=== PATIENT | female | born 1990 | race African-American/Black ===

== ENCOUNTER 2017-12-05 11:54 | Emergency (ER) | payer OTHER ==
[~2017-12-05] VITALS: Ht 157.5 cm; Wt 45.4 kg
[2017-12-05] MEDS ORDERED: NKM (12:05)
--- NOTE | 2017-12-05 12:08 | Emergency Room Report ---
History of Present Illness General Chief Complaint: Upper Respiratory Illness Source: Patient Present Illness HPI 27 YO Female presents to the ED c/o cough congestion body aches x 1 week. no fevers or chills. cough worse at night with some mucus component to it. Denies sore throat, ear pain, high fevers, lethargy, neck pain/stiffness, irritability, photophobia dehydration, N/V/D. Denies Cp, Palpitations, LOC, AMS , seizures, paresthesias, or changes in Hearing or vision, no Sudden severe MONTEIRO. Denies hx of smoking, asthma or COPD. Allergies: Coded Allergies: No Known Allergies (Unverified , 12/05/17) Patient History Past Medical History: see triage record Past Surgical History: none Pertinent Family History: none Last Menstrual Period: 11/29/2017 Reviewed Nursing Documentation: PMH: Agreed; PSxH: Agreed Nursing Documentation-PMH Past Medical History: No Stated History Review of Systems All Other Systems: negative except mentioned in HPI Physical Exam Vital Signs Date Time Temp Pulse Resp B/P (MAP) Pulse Ox O2 Delivery O2 Flow Rate FiO2 12/05/17 12:00 97.8 77 16 114/75 95 Room Air 97.9 Sp02 EP Interpretation: reviewed, normal General Appearance: no apparent distress, alert, GCS 15, non-toxic Head: normocephalic, atraumatic Eyes: bilateral eye normal inspection, bilateral eye PERRL ENT: hearing grossly normal, normal voice Neck: full range of motion Respiratory: chest non-tender, lungs clear, normal breath sounds, no rhonchi, no respiratory distress, speaking full sentences, wheezing - scant on expirations Cardiovascular #1: regular rate, rhythm Musculoskeletal: back normal, gait/station normal, normal range of motion, non- tender Neurologic: alert, oriented x3, responsive, motor strength/tone normal, sensory intact, normal gait, speech normal, grossly normal Psychiatric: judgement/insight normal Skin: normal color, no rash, warm/dry, well hydrated Lymphatic: no adenopathy Medical Decision Making PA Attestation Dr. Parker is my supervising Physician whom patient management has been discussed with. Diagnostic Impression: Primary Impression: Acute bronchitis Qualified Codes: J20.9 - Acute bronchitis, unspecified ER Course 27 YO Female presents to the ED c/o cough congestion body aches x 1 week. no fevers or chills. cough worse at night with some mucus component to it. Denies sore throat, ear pain, high fevers, lethargy, neck pain/stiffness, irritability, photophobia dehydration, N/V/D. Denies Cp, Palpitations, LOC, AMS , seizures, paresthesias, or changes in Hearing or vision, no Sudden severe MONTE[place]O. Denies hx of smoking, asthma or COPD. Ddx considered but are not limited to URI, pneumonia, PE, strep pharyngitis, meningitis. Vital signs: Pt. is afebrile, the remaining VS are WNL H&PE are most consistent with URI-acute bronchitis no meningeal signs, oropharynx is not involved, no evidence of bacterial infection at this time. ORDERS: none required at this time, the diagnosis is clinical ED INTERVENTIONS: None required at this time. --PT. EDUCATION: Discussed antibiotic resistance with inappropriate prescribing of antibiotics for viral illnesses. Discussed signs and symptoms to indicate viral illness versus bacterial illness. DISCHARGE: At this time pt. is stable for d/c to home. Will provide printed patient care instructions, and any necessary prescriptions. Care plan and follow up instructions have been discussed with the patient prior to discharge. Last Vital Signs Date Time Temp Pulse Resp B/P (MAP) Pulse Ox O2 Delivery O2 Flow Rate FiO2 12/05/17 12:00 97.8 77 16 114/75 95 Room Air 97.9 Disposition: HOME, SELF-CARE Condition: Stable Scripts Benzonatate* (TESSALON PERLE*) 100 Mg Capsule 100 MG ORAL THREE TIMES A DAY, #15 PERLE Prov: Ina Loza P.A. 12/05/17 Guaifenesin (Guaifenesin) 1,200 Mg Tab.er.12h 1200 MG PO DAILY, #20 TAB Prov: Ina Loza P.A. 12/05/17 Albuterol Sulfate* (ALBUTEROL SULFATE MDI*) 8.5 Gm Hfa.aer.ad 2 PUFF INH Q6H, #1 INH 0 Refills Prov: Ina Loza.A. 12/05/17 Codeine/Promethazine Hcl* (PROMETHAZINE-CODEINE SYRUP*) 118 Ml Syrup 5 ML ORAL Q6H PRN for For Cough, #120 ML 0 Refills Prov: Ina Loza 12/05/17 Patient Instructions: Acute Bronchitis, [id number] Additional Instructions: Take medications as directed. Follow up with a Primary Care Provider in 3-5 days, even if your symptoms have resolved. --Please review list of primary care clinics, if you do not already have a primary care provider Return sooner to ED if new symptoms occur, or current symptoms become worse. Do not drink alcohol, drive, or operate heavy machinery while taking cough syrup as this may cause drowsiness. - Please note that this Emergency Department Report was dictated using [employer] doctor md technology software, occasionally this can lead to erroneous entry secondary to interpretation by the dictation equipment. Ina Loza December 05, 2017 12:08
[2017-12-05 12:10] VITALS: BP 114/75
[2017-12-05] MEDS ORDERED: TESSALON PERLE100 MG ORAL (12:17)
[2017-12-05] MEDS ORDERED: ALBUTEROL SULF8.5 GM INH (12:17)
[2017-12-05] MEDS ORDERED: GUAIFENESIN1200 MG PO (12:17)
[2017-12-05] MEDS ORDERED: PROMETHAZINE-C118 M1 ORAL (12:17)
[2017-12-05 12:38] VITALS: BP 114/75
== END 2017-12-05 13:00 | disposition home or self-care (01) ==
LOC: EMR 12:37
DX: J20.9 Acute bronchitis, unspecified (principal)
CPT/HCPCS: 99284

== ENCOUNTER 2019-05-31 10:25 | Emergency (ER) | payer OTHER ==
[~2019-05-31] VITALS: Ht 160 cm; Wt 49.0 kg
[~2019-05-31 10:25] MED LIST: ALBUTEROL SULF8.5 GM INH; GUAIFENESIN1200 MG PO; NKM; PROMETHAZINE-C118 M1 ORAL; TESSALON PERLE100 MG ORAL
--- NOTE | 2019-05-31 10:48 | Emergency Room Report ---
History of Present Illness General Chief Complaint: Complications Source: Patient Present Illness HPI The patient has had spotting for 3 days. Her last normal period was April 23. She was seen by [facility]. An ultrasound was performed. She was sent here for possible treatment of an ectopic . She denies any abdominal pain at this time. There is no fever or chills. She denies any vomiting or nausea. G2, P0 Allergies: Coded Allergies: No Known Allergies (Unverified , 12/05/17) Patient History Social History: Reports: alcohol use - Rare; Denies: smoking - Former Social History Narrative Student studying [employer] Last Menstrual Period: 04/23/19 Now: Yes : 2 Para: 0 Reviewed Nursing Documentation: PMH: Agreed; PSxH: Agreed Nursing Documentation-PMH Past Medical History: No Stated History Review of Systems All Other Systems: negative except mentioned in HPI Physical Exam Vital Signs Date Time Temp Pulse Resp B/P (MAP) Pulse Ox O2 Delivery O2 Flow Rate FiO2 05/31/19 10:30 98.4 94 18 113/75 (88) 97 Room Air Sp02 EP Interpretation: reviewed, normal General Appearance: well appearing, no apparent distress, GCS 15 Head: normocephalic Eyes: bilateral eye normal inspection, bilateral eye PERRL, bilateral eye EOMI ENT: moist mucus membranes Neck: supple Respiratory: lungs clear, normal breath sounds Cardiovascular #1: regular rate, rhythm Cardiovascular #2: 2+ radial (R) Gastrointestinal: normal inspection, normal bowel sounds, non tender, no mass, non-distended Genitourinary: no CVA tenderness, deferred - For ultrasound Musculoskeletal: back normal, gait/station normal, normal range of motion Neurologic: alert, oriented x3, grossly normal Psychiatric: mood/affect normal Skin: no rash Medical Decision Making Diagnostic Impression: Primary Impression: Early stage of Additional Impression: Threatened miscarriage ER Course Patient presents with questionable ectopic and 3 days of vaginal spotting with early . Differential includes early , ectopic, threatened miscarriage, UTI amongst others. Lab evaluation and ultrasound indicated. Patient declines pain medication at this time. Normal white count. Quantitative hCG 469. Ultrasound no intrauterine identified however no adnexal mass or fluid collection. Discussed with Dr. Grady. He recommended that repeat ultrasound and/or quantitative hCG be performed in 3 or 4 days. He also stated no acute treatment needed. Blood O + Discussed treatment plan with patient. Patient stable for outpatient observation and treatment. Laboratory Tests Test 05/31/19 10:40 05/31/19 10:50 Urine Color Pale yellow Urine Appearance Clear Urine pH 8 (4.5-8.0) Urine Specific [place] 1.010 (1.005-1.035) Urine Protein Negative (NEGATIVE) Urine Glucose (UA) Negative (NEGATIVE) Urine Ketones 1+ (NEGATIVE) H Urine Blood Negative (NEGATIVE) Urine Nitrite Negative (NEGATIVE) Urine Bilirubin Negative (NEGATIVE) Urine Urobilinogen 1 MG/DL (0.0-1.0) H Urine Leukocyte Esterase Negative (NEGATIVE) White Blood Count 5.3 K/UL (4.8-10.8) Red Blood Count 3.56 M/UL (4.20-5.40) L Hemoglobin 11.6 G/DL (12.0-16.0) L Hematocrit 34.5 % (37.0-47.0) L Mean Corpuscular Volume 97 FL (80-99) Mean Corpuscular Hemoglobin 32.5 PG (27.0-31.0) H Mean Corpuscular Hemoglobin Concent 33.5 G/DL (32.0-36.0) Red Cell Distribution Width 11.2 % (11.6-14.8) L Platelet Count 205 K/UL (150-450) Mean Platelet Volume 8.0 FL (6.5-10.1) Neutrophils (%) (Auto) 60.4 % (45.0-75.0) Lymphocytes (%) (Auto) 28.4 % (20.0-45.0) Monocytes (%) (Auto) 9.0 % (1.0-10.0) Eosinophils (%) (Auto) 0.5 % (0.0-3.0) Basophils (%) (Auto) 1.6 % (0.0-2.0) Prothrombin Time 10.0 SEC (9.30-11.50) Prothrombin Time INR 0.9 (0.9-1.1) PTT 29 SEC (23-33) Sodium Level 141 MMOL/L (136-145) Potassium Level 4.0 MMOL/L (3.5-5.1) Chloride Level 106 MMOL/L (98-107) Carbon Dioxide Level 25 MMOL/L (21-32) Anion Gap 10 mmol/L (5-15) Blood Urea Nitrogen 8 mg/dL (7-18) Creatinine 0.6 MG/DL (0.55-1.30) Estimate Glomerular Filtration Rate > 60 mL/min (>60) Glucose Level 68 MG/DL (74-106) L Calcium Level 8.4 MG/DL (8.5-10.1) L Total Bilirubin 0.5 MG/DL (0.2-1.0) Aspartate Amino Transferase (AST) 16 U/L (15-37) Alanine Aminotransferase (ALT) 16 U/L (12-78) Alkaline Phosphatase 79 U/L (46-116) Total Protein 7.6 G/DL (6.4-8.2) Albumin 3.9 G/DL (3.4-5.0) Globulin 3.7 g/dL Albumin/Globulin Ratio 1.1 (1.0-2.7) Lipase 133 U/L (73-393) Human Chorionic Gonadotropin, Quant 469 mIU/mL (1-6) H CT/MRI/US Diagnostic Results CT/MRI/US Diagnostic Results : Imaging Test Ordered: Pelvic ultrasound Impression No IUP. Consider spontaneous , normal early IUP. Early ectopic not excluded. Correlate with serial quantitative beta hCG and consider follow-up ultrasound. Nonvisualization of the right ovary Last Vital Signs Date Time Temp Pulse Resp B/P (MAP) Pulse Ox O2 Delivery O2 Flow Rate FiO2 05/31/19 18:05 98.9 78 18 111/71 98 05/31/19 13:30 Room Air Status: improved Disposition: HOME, SELF-CARE Condition: Improved Scripts Pnv Cmb#21/Iron/Folic Acid ( COMPLETE CAPLET) 1 Each Tablet 1 EACH PO DAILY, #30 TAB Prov: Antonio Trevizo MD 05/31/19 Antonio Trevizo MD May 31, 2019 10:48
--- NOTE | 2019-05-31 10:50 | NUR ---
ED Nurse Note: Patient walked into ED referred by [email or web address] d/t suspected ectopic (5 weeks). Pt aox4. LMP 04/23/19 per patient. Pt states she has been spotting for the "last couple of days". Pt denies pain at this time. IV established on right AC; pt tolerated well. Blood collected and sent down to lab with urine provided by patient. ERMD at bedside. Will continue to monitor and carry out orders.
--- NOTE | 2019-05-31 11:04 | NUR ---
ED Nurse Note: Patient denies pain at this time. No n/v noted.
[2019-05-31 11:06] LABS: BASOPHILS % (AUTO) 1.6 % (0.0-2.0); EOSINOPHILS % (AUTO) 0.5 % (0.0-3.0); HEMATOCRIT 34.5 % (37.0-47.0); HEMOGLOBIN 11.6 G/DL (12.0-16.0); LYMPHOCYTES % (AUTO) 28.4 % (20.0-45.0); MEAN CORPUSCULAR VOLUME 97 FL (80-99); NEUTROPHILS % (AUTO) 60.4 % (45.0-75.0); PLATELET COUNT 205 K/UL (150-450); RED BLOOD COUNT 3.56 M/UL (4.20-5.40); RED CELL DISTRIBUTION WIDTH 11.2 % (11.6-14.8); WHITE BLOOD COUNT 5.3 K/UL (4.8-10.8)
[2019-05-31 11:08] LABS: APPEARANCE,URINE CLEAR; BILIRUBIN, URINE NEGATIVE (NEGATIVE); COLOR,URINE PALE YELLOW; GLUCOSE, URINE (UA) NEGATIVE (NEGATIVE); KETONES,URINE 1+ (NEGATIVE); LEUKOCYTE ESTERASE ,URINE NEGATIVE (NEGATIVE); NITRITE,URINE NEGATIVE (NEGATIVE); PH,URINE 8 (4.5-8.0); PROTEIN,URINE NEGATIVE (NEGATIVE); UROBILINOGEN,URINE 1 MG/DL (0.0-1.0)
[2019-05-31 11:10] VITALS: BP 96/52
--- NOTE | 2019-05-31 11:10 | NUR ---
ED Nurse Note: US at bedside.
[2019-05-31 11:13] LABS: INR 0.9 (0.9-1.1)
[2019-05-31 11:19] LABS: ANION GAP 10 mmol/L (5-15); BLOOD UREA NITROGEN 8 mg/dL (7-18); CALCIUM 8.4 MG/DL (8.5-10.1); CARBON DIOXIDE 25 MMOL/L (21-32); CHLORIDE 106 MMOL/L (98-107); CREATININE 0.6 MG/DL (0.55-1.30); SODIUM 141 MMOL/L (136-145)
[2019-05-31 11:23] LABS: ALANINE AMINOTRANSFERASE 16 U/L (12-78); ALBUMIN 3.9 G/DL (3.4-5.0); ALBUMIN/GLOBULIN RATIO 1.1 (1.0-2.7); ALKALINE PHOSPHATASE 79 U/L (46-116); ASPARTATE AMINO TRANSFERASE 16 U/L (15-37); BILIRUBIN,TOTAL 0.5 MG/DL (0.2-1.0)
--- NOTE | 2019-05-31 11:39 | NUR ---
ED Nurse Note: US tech accompanied by senior grant writer for vaginal US.
--- NOTE | 2019-05-31 13:01 | Diagnostic Imaging Report ---
Indication: Pelvic pain. Positive Technique: Grayscale and duplex Doppler imaging of the pelvis performed utilizing a transabdominal scan and endovaginal scan. Comparison: None Findings: No gestational sac or IUP identified. Right ovary is not seen. The left ovary appears normal with dopplerable blood flow. Nabothian cyst noted in the cervix. The endometrium is thickened and measures about 13 mm. Uterus is 7.2 x 4.1 x 3.5 cm. Left ovary is 2.1 x 1.8 x 2.9 cm. Trace free fluid noted in the cul-de-sac. IMPRESSION: No IUP. Consider spontaneous , normal early IUP. Early ectopic not excluded. Correlate with serial quantitative beta hCG and consider follow-up ultrasound. Nonvisualization of the right ovary
[2019-05-31 13:30] VITALS: BP 98/58
[2019-05-31] MEDS ORDERED: PRENATAL COMPL1 EAC1 PO (14:10)
--- NOTE | 2019-05-31 14:50 | NUR ---
ER DISCHARGE NOTE: Patient is cleared to be discharged per ERMD, pt is aox4, on room air, with stable vital signs. pt was given dc and prescription instructions, pt was able to verbalize understanding, pt id band and iv site removed without complications. pt is able to ambulate with steady gait. pt took all belongings.
[2019-05-31 18:05] VITALS: BP 111/71
== END 2019-05-31 14:50 | disposition home or self-care (01) ==
LOC: EMR 11:29
DX: O20.0 Threatened abortion (principal); Z3A.00 Weeks of gestation of pregnancy not specified; Z87.891 Personal history of nicotine dependence
CPT/HCPCS: 36415; 76801; 80053; 81003; 83690; 84702; 85025; 85610; 85730; 86850; 86900; 86901; 96360; Z7502; 99284

== ENCOUNTER 2019-06-09 14:36 | Inpatient (IN) | payer OTHER ==
[~2019-06-09] VITALS: Ht 157.5 cm; Wt 49.9 kg
[2019-06-09] VITALS (10 sets, daily range): BP systolic 119–134; BP diastolic 69–89
[2019-06-09] MEDS: ceFAZolin sod 2 GM in D5W 110 ML IV SCH ×2 (05:00→13:00)
[~2019-06-09 14:36] MED LIST changes: +PRENATAL COMPL1 EAC1 PO
[2019-06-09] MEDS ORDERED: Metoclopramide 10mg/2ml Inj IVP ONE ×2 (15:00→16:15)
[2019-06-09 15:44] LABS: APPEARANCE,URINE CLOUDY; BILIRUBIN, URINE NEGATIVE (NEGATIVE); COLOR,URINE AMBER; GLUCOSE, URINE (UA) NEGATIVE (NEGATIVE); KETONES,URINE NEGATIVE (NEGATIVE); LEUKOCYTE ESTERASE ,URINE 1+ (NEGATIVE); NITRITE,URINE NEGATIVE (NEGATIVE); PH,URINE 6 (4.5-8.0); PROTEIN,URINE 1+ (NEGATIVE); UROBILINOGEN,URINE 1 MG/DL (0.0-1.0)
[2019-06-09] MEDS ORDERED: Morphine Sulfate 2mg/ml Inj(IV/IM USE ONLY) IVP ONE (16:15)
[2019-06-09 16:40] LABS: BASOPHILS % (AUTO) 1.5 % (0.0-2.0); EOSINOPHILS % (AUTO) 1.5 % (0.0-3.0); HEMATOCRIT 39.3 % (37.0-47.0); HEMOGLOBIN 13.1 G/DL (12.0-16.0); LYMPHOCYTES % (AUTO) 20.4 % (20.0-45.0); MEAN CORPUSCULAR VOLUME 97 FL (80-99); MONOCYTES % (AUTO) 11.8 % (1.0-10.0); NEUTROPHILS % (AUTO) 64.7 % (45.0-75.0); PLATELET COUNT 228 K/UL (150-450); RED BLOOD COUNT 4.06 M/UL (4.20-5.40); RED CELL DISTRIBUTION WIDTH 11.6 % (11.6-14.8)
[2019-06-09 16:43] LABS: ANION GAP 4 mmol/L (5-15); BLOOD UREA NITROGEN 5 mg/dL (7-18); CALCIUM 8.7 MG/DL (8.5-10.1); CARBON DIOXIDE 28 MMOL/L (21-32); CHLORIDE 103 MMOL/L (98-107); CREATININE 0.7 MG/DL (0.55-1.30); POTASSIUM 3.7 MMOL/L (3.5-5.1); SODIUM 135 MMOL/L (136-145)
[2019-06-09 16:45] LABS: INR 0.9 (0.9-1.1)
--- NOTE | 2019-06-09 16:51 | Diagnostic Imaging Report ---
Indication: Pelvic pain, vaginal bleeding, positive Technique: Transabdominal and transvaginal images of the pelvis Comparison: 05/31/2019 Findings: Uterus measures 7.6 cm length by 4.1 cm AP. The endometrium is thickened, slightly heterogeneous, measuring up to 16 mm thick. No myometrial abnormality. No intrauterine gestational sac is demonstrated. The left ovary measures 2.5 cm in length. Adjacent to the left ovary is a thick-walled cystic structure the periphery of which is somewhat hyperemic. This does not demonstrate parts or heart activity. There is a moderate amount of free fluid in the cul-de-sac which contains low level internal echoes. The right ovary cannot be visualized Impression: No intrauterine demonstrated. Note that quantitative beta hCG results are not available at the time of exam, but were positive on prior study 05/31/2019. Main differential considerations are spontaneous , ectopic . There is a small irregular fluid collection in the left ovary or adnexal region with peripheral hyperemia. This could represent a partially collapsed corpus luteum or an ectopic . Moderate pelvic free fluid. Low-level internal echoes could indicate debris or blood. Findings as by phone previously with Dr. Hoover, and at the time of interpretation with Dr. Avalos
[2019-06-09 16:53] LABS: ALANINE AMINOTRANSFERASE 19 U/L (12-78); ALBUMIN 3.8 G/DL (3.4-5.0); ALKALINE PHOSPHATASE 60 U/L (46-116); ASPARTATE AMINO TRANSFERASE 21 U/L (15-37); BILIRUBIN,TOTAL 0.6 MG/DL (0.2-1.0)
[2019-06-09] MEDS ORDERED: cefTRIAXone 1 GM in NS 55 ML IVPB ONE (17:15)
--- NOTE | 2019-06-09 18:53 | Emergency Room Report ---
History of Present Illness General Chief Complaint: Complications Source: Patient (Rayna Townsend) Present Illness HPI 28-year-old female who is G2, P0 and 6 weeks here complaining of a 10 out of 10 left adnexal pain x3 days. Patient was originally seen at [facility] 9 days ago for vaginal spotting and pelvic pain. Patient was diagnosed with possible spontaneous as no IUP was seen on ultrasound. Patient did not follow-up with [facility]. Reports that the past 3 days that she started spotting and started having few clots this morning as well as a 10 out of 10 pain that started last night in the left adnexa. Patient is tender to palpation in the left adnexa. Stable with stable vital signs. Denies syncope, headache, dizziness, shortness of breath. Reports that she had a D&C in 2018. Reports that she drinks alcohol every few days knowing her status she continues to drink. Denies tobacco smoke and drug use. Denies all other medical condition. Denies chest pain, shortness of breath, palpitation, and other associated symptoms. Complains of pain and nausea at this time. After giving morphine and Reglan patient pain was well controlled and patient is stable. Patient okay to be admitted to . Dr. Avalos(OBGYN) was contacted by my supervising physician Dr. Hoover and was informed about patient status and okay to be admitted. We contacted Dr. Zamora, radiologist at 17:16PM and asked to verbally report the size of the adnexal mass and if there is any free fluid in cul-de-sac. According to radiologist report there is free fluid in cul-de-sac with possibility and high suspicion for rupture of ectopic , and the adnexal mass is 1.5 cm. (Rayna Townsend) Allergies: Coded Allergies: No Known Allergies (Unverified , 12/05/17) Patient History Past Medical History: see triage record Past Surgical History: unable to obtain Pertinent Family History: none Social History: Reports: alcohol use Now: No Immunizations: UTD Reviewed Nursing Documentation: PMH: Agreed; PSxH: Agreed (Rayna Townsend) Nursing Documentation-PMH Past Medical History: No History, Except For (Rayna Townsend) Review of Systems All Other Systems: negative except mentioned in HPI (Rayna Townsend) Physical Exam Vital Signs Date Time Temp Pulse Resp B/P (MAP) Pulse Ox O2 Delivery O2 Flow Rate FiO2 06/09/19 14:42 98.1 107 16 117/76 (90) 98 Room Air Sp02 EP Interpretation: reviewed, normal General Appearance: no apparent distress, alert, GCS 15, non-toxic Head: normocephalic, atraumatic Eyes: bilateral eye normal inspection, bilateral eye PERRL ENT: hearing grossly normal, normal pharynx, no angioedema, normal voice Neck: full range of motion, supple/symm/no masses Respiratory: chest non-tender, lungs clear, normal breath sounds, no rhonchi, no wheezing, speaking full sentences Cardiovascular #1: regular rate, rhythm, no edema, no gallop, no murmur Cardiovascular #2: 2+ carotid (R), 2+ carotid (L), 2+ radial (R), 2+ radial (L) Gastrointestinal: normal bowel sounds, no organomegaly, no bruit, non-distended , guarding - left adnexa, tenderness - left adnexa Genitourinary: no CVA tenderness Musculoskeletal: normal inspection, back normal, digits/nails normal, gait/ station normal, non-tender, no calf tenderness Neurologic: alert, oriented x3, responsive, motor strength/tone normal, sensory intact, speech normal Psychiatric: judgement/insight normal, memory normal, mood/affect normal, no suicidal/homicidal ideation Skin: no rash Lymphatic: no adenopathy (Rayna Townsend) Procedures Critical Care Time Critical Care Time Given the critical condition in which the patient arrived, the patient was immediately assessed by myself and the nurse, and cardiac monitoring initiated due to the potential for rapid decompensation of the patient's clinical condition. During the course of the patient's stay, I spent a considerable amount of time at the bedside performing serial re-evaluations of the patient's hemodynamic and clinical status because of the recognized potential threat to life or limb in this condition. I then had a chance to review not only all of the available current laboratory and radiographic studies obtained today, but I also reviewed old records available to me at the time. Additionally, any ancillary information available including payroll benefits clerk records were reviewed. Sequential vital signs were obtained. Critical Care time of 37 minutes was performed exclusive of billable procedures. (Jono Hoover MD) Medical Decision Making PA Attestation Diagnosis and treatment plans were reviewed and discussed with my supervising physician Dr. Hoover (Kristian,Rayna MILLAN) PA Attestation I saw and evaluated the patient and discussed the care with Rayna MILLAN on 06/09/2019. I agree with the findings and plan as documented in the note. (Jono Hoover MD) Diagnostic Impression: Primary Impression: Ectopic Qualified Codes: O00.102 - Left tubal without intrauterine ER Course 28-year-old female who is G2, P0 and 6 weeks here complaining of a 10 out of 10 left adnexal pain x3 days. Patient was originally seen at [facility] 9 days ago for vaginal spotting and pelvic pain. Patient was diagnosed with possible spontaneous as no IUP was seen on ultrasound. Patient did not follow-up with [facility]. Reports that the past 3 days that she started spotting and started having few clots this morning as well as a 10 out of 10 pain that started last night in the left adnexa. Patient is tender to palpation in the left adnexa. Stable with stable vital signs. Denies syncope, headache, dizziness, shortness of breath. Reports that she had a D&C in 2018. Reports that she drinks alcohol every few days knowing her status she continues to drink. Denies tobacco smoke and drug use. Denies all other medical condition. Denies chest pain, shortness of breath, palpitation, and other associated symptoms. Complains of pain and nausea at this time. After giving morphine and Reglan patient pain was well controlled and patient is stable. Patient okay to be admitted to . Dr. Avalos (OBGYN) was contacted by my supervising physician Dr. Hoover and was informed about patient status and okay to be admitted. We contacted Dr. Zamora, radiologist at 17:16PM and asked to verbally report the size of the adnexal mass and if there is any free fluid in cul-de-sac. According to radiologist report there is free fluid in cul-de-sac with possibility and high suspicion for rupture of ectopic , and the adnexal mass is 1.5 cm. Ddx considered but are not limited to: Ectopic , threatened , continuous , endometritis Vital signs: are WNL, pt. is afebrile H&PE are most consistent with: Ectopic ORDERS: CBC, CMP, type and screen, UA, beta hCG, OB ultrasound ED INTERVENTIONS: NS bolus, Reglan, morphine Patient was admitted with diagnosis of ectopic to Dr. Hernadez with pending consultation from under supervision of : Kiko pt stable at time of admission (Rayna Townsend) ER Course 28-year-old female presents with left adnexal pain, spoke with gynecology who will evaluate patient and possibly take her to OR for removal. Patient with fluid in the cul-de-sac, no fluid in Morison's or the splenorenal recess, patient with possible ruptured ectopic without gross extravasation. Dr. Hess from outside hospital does not want patient transferred due to possible risk of instability and complete rupture and extravasation Spoke with the doctor refer to PA note for times, patient will be admitted and surgery will be performed Patient admitted Laboratory Tests Test 06/09/19 15:17 06/09/19 16:00 Urine Color Aaliyah Urine Appearance Cloudy Urine pH 6 (4.5-8.0) Urine Specific [place] 1.025 (1.005-1.035) Urine Protein 1+ (NEGATIVE) H Urine Glucose (UA) Negative (NEGATIVE) Urine Ketones Negative (NEGATIVE) Urine Blood 5+ (NEGATIVE) H Urine Nitrite Negative (NEGATIVE) Urine Bilirubin Negative (NEGATIVE) Urine Ictotest Negative (NEGATIVE) Urine Urobilinogen 1 MG/DL (0.0-1.0) H Urine Leukocyte Esterase 1+ (NEGATIVE) H Urine RBC 20-30 /HPF (0 - 2) H Urine WBC 5-10 /HPF (0 - 2) H Urine Squamous Epithelial Cells Many /LPF (NONE/OCC) H Urine Bacteria Moderate /HPF (NONE) H White Blood Count 6.0 K/UL (4.8-10.8) Red Blood Count 4.06 M/UL (4.20-5.40) L Hemoglobin 13.1 G/DL (12.0-16.0) Hematocrit 39.3 % (37.0-47.0) Mean Corpuscular Volume 97 FL (80-99) Mean Corpuscular Hemoglobin 32.3 PG (27.0-31.0) H Mean Corpuscular Hemoglobin Concent 33.4 G/DL (32.0-36.0) Red Cell Distribution Width 11.6 % (11.6-14.8) Platelet Count 228 K/UL (150-450) Mean Platelet Volume 7.9 FL (6.5-10.1) Neutrophils (%) (Auto) 64.7 % (45.0-75.0) Lymphocytes (%) (Auto) 20.4 % (20.0-45.0) Monocytes (%) (Auto) 11.8 % (1.0-10.0) H Eosinophils (%) (Auto) 1.5 % (0.0-3.0) Basophils (%) (Auto) 1.5 % (0.0-2.0) Prothrombin Time 9.7 SEC (9.30-11.50) Prothrombin Time INR 0.9 (0.9-1.1) PTT 28 SEC (23-33) Sodium Level 135 MMOL/L (136-145) L Potassium Level 3.7 MMOL/L (3.5-5.1) Chloride Level 103 MMOL/L (98-107) Carbon Dioxide Level 28 MMOL/L (21-32) Anion Gap 4 mmol/L (5-15) L Blood Urea Nitrogen 5 mg/dL (7-18) L Creatinine 0.7 MG/DL (0.55-1.30) Estimate Glomerular Filtration Rate > 60 mL/min (>60) Glucose Level 77 MG/DL (74-106) Calcium Level 8.7 MG/DL (8.5-10.1) Total Bilirubin 0.6 MG/DL (0.2-1.0) Aspartate Amino Transferase (AST) 21 U/L (15-37) Alanine Aminotransferase (ALT) 19 U/L (12-78) Alkaline Phosphatase 60 U/L (46-116) Total Protein 7.6 G/DL (6.4-8.2) Albumin 3.8 G/DL (3.4-5.0) Globulin 3.8 g/dL Albumin/Globulin Ratio 1.0 (1.0-2.7) Human Chorionic Gonadotropin, Quant 7399 mIU/mL (1-6) H (Jono Hoover MD) EKG Diagnostic Results Rate: normal Rhythm: NSR ST Segments: no acute changes Other Impression no acute ST changes (Rayna Townsend) CT/MRI/US Diagnostic Results CT/MRI/US Diagnostic Results : Imaging Test Ordered: OB US Impression 1.5cm left adnexal mass, free fluid in cul de sac (Rayna Townsend) Last Vital Signs Date Time Temp Pulse Resp B/P (MAP) Pulse Ox O2 Delivery O2 Flow Rate FiO2 06/09/19 17:00 98.0 06/09/19 14:42 107 16 117/76 (90) 98 Room Air (Rayna Townsend) Disposition: ADMITTED INPATIENT Condition: Serious Referrals: [facility],REFERR[facility] (PCP) Rayna Townsend Jun 09, 2019 18:53 Jono Hoover MD Jun 09, 2019 21:06
[2019-06-09] MEDS ORDERED: Morphine Sulfate 10mg/ml Inj ONE (19:32)
[2019-06-09] MEDS ORDERED: Midazolam 2mg/2ml Inj ONE (19:32)
[2019-06-09] MEDS ORDERED: Rocuronium Bromide 50mg/5ml Inj IV ONE (19:39)
[2019-06-09] MEDS ORDERED: Hydromorphone 0.5mg/0.5ml inj IVP PRN ×2 (19:45→21:45)
[2019-06-09] MEDS ORDERED: fentaNYL 100 mcg/2 mL IV PRN (19:45)
[2019-06-09] MEDS ORDERED: NS Irrig 2000ml IRRIG ONE (20:10)
[2019-06-09] MEDS ORDERED: Sterile Water Irrig 1000ml IRRIG ONE (20:10)
--- NOTE | 2019-06-09 20:24 | Pre-Procedure Note/Attestation ---
Pre-Procedure Note/Attestation Complete Prior to Procedure Planned Procedure: not applicable Procedure Narrative: ex lap, salpingectomy, possible oophorectomy, whatever procedure deemed necessary Indications for Procedure Pre-Operative Diagnosis: acute abdomen, suspected ectopic Attestation I attest that I discussed the nature of the procedure; its benefits; risks and complications; and alternatives (and the risks and benefits of such alternatives ), prior to the procedure, with the patient (or the patient's legal inside sales representative). I attest that, if there was a reasonable possibility of needing a blood transfusion, the patient (or the patient's legal inside sales representative) was given the [facility] standardized written summary, pursuant to the [place] Boris Blood Safety Act ([place] Health and Safety Code # 1645, as amended). I attest that I re-evaluated the patient just prior to the surgery and that there has been no change in the patient's H&P, except as documented below: Costa Avalos MD Jun 09, 2019 20:24
[2019-06-09] MEDS ORDERED: NS Irrig 1000ml IRRIG ONE (21:00)
[2019-06-09] MEDS ORDERED: Metoclopramide 10mg/2ml Inj ONE (21:03)
[2019-06-09] MEDS ORDERED: Neostigmine 1mg/ml 10ml Inj ONE (21:03)
[2019-06-09] MEDS ORDERED: Propofol 200mg/20ml IV ONE (21:03)
[2019-06-09] MEDS ORDERED: Lidocaine 1% MPF 10mg/ml 5ml ONE (21:03)
[2019-06-09] MEDS ORDERED: Glycopyrrolate 0.2mg/ml 1ml Vial ONE (21:03)
[2019-06-09] MEDS ORDERED: Ketorolac 30mg Inj ONE (21:04)
[2019-06-09] MEDS ORDERED: Surgicel 4in x 8in TOPIC ONE (21:20)
--- NOTE | 2019-06-09 21:32 | Brief Operative Note ---
Immediate Post Operative Note Operative Note Pre-op Diagnosis: acute abdomen, suspected ectopic Procedure: Ex Lap,Left salpingectomy, Lysis of adhesions, Right adnexal cyst removal Post-op Diagnosis: ruptured left ectopic, right adnexal cyst , adnexal adhesions Post-op Diagnosis: same as pre-op plus - l Surgeon: Jaimie Avalos MD Graphic Engineer: Dipesh Bailey MD Anesthesiologist: Purvi Castaneda CRNA Anesthesia: general Specimen: yes Complications: none Condition: stable Fluids: crystalloids Estimated Blood Loss: volume Drains: none Implant(s) used?: No Costa Avalos MD Jun 09, 2019 21:32
--- NOTE | 2019-06-09 21:33 | Anethesia Preoperative Eval ---
Anesthesia Pre-op PMH/ROS General Date of Evaluation: Jun 09, 2019 Time of Evaluation: 20:10 Anesthesiologist: amauri ASA Score: ASA 2 Mallampati Score Class I : Soft palate, uvula, fauces, pillars visible Class II: Soft palate, uvula, fauces visible Class III: Soft palate, base of uvula visible Class IV: Only hard plate visible Mallampati Classification: Class II Surgeon: Robbie Diagnosis: Ectopic Surgical Procedure: Laparotomy Social History: smoking, current smoker Family History: no anesthesia problems Allergies: Coded Allergies: No Known Allergies (Unverified , 12/05/17) Medications: see eMAR Patient NPO?: Yes NPO Date: Jun 09, 2019 NPO Time: 00:01 Past Medical History Cardiovascular: Denies: HTN, CAD, [place], valve dz, arrhythmia, other Pulmonary: Denies: asthma, COPD, YASMEEN, other Gastrointestinal/Genitourinary: Denies: GERD, CRI, ESRD, other Neurologic/Psychiatric: Denies: dementia, CVA, depression/anxiety, TIA, other Endocrine: Denies: DM, hypothyroidism, steroids, other HEENT: Denies: cataract (L), cataract (R), glaucoma, [place] (L), [place] (R), other Hematology/Immune: Denies: anemia, DVT, bleeding disorder, other Musculoskeletal/Integumentary: Denies: OA, RA, DJD, DDD, edema, other PSxH Narrative: none Anesthesia Pre-op Phys. Exam Physician Exam Last Vital Signs Date Time Temp Pulse Resp B/P (MAP) Pulse Ox O2 Delivery O2 Flow Rate FiO2 06/09/19 17:00 98.0 06/09/19 14:42 107 16 117/76 (90) 98 Room Air Constitutional: NAD Neurologic: CN 2-12 intact Cardiovascular: RRR Respiratory: CTA Gastrointestinal: S/NT/ND Airway Exam Mallampati Classification 3 Mallampati Score: Class II MO: full TMD: 2fb ROM: full Anesthesia Pre-op A/P Labs Hematology Test 06/09/19 16:00 White Blood Count 6.0 K/UL (4.8-10.8) Red Blood Count 4.06 M/UL (4.20-5.40) L Hemoglobin 13.1 G/DL (12.0-16.0) Hematocrit 39.3 % (37.0-47.0) Mean Corpuscular Volume 97 FL (80-99) Mean Corpuscular Hemoglobin 32.3 PG (27.0-31.0) H Mean Corpuscular Hemoglobin Concent 33.4 G/DL (32.0-36.0) Red Cell Distribution Width 11.6 % (11.6-14.8) Platelet Count 228 K/UL (150-450) Mean Platelet Volume 7.9 FL (6.5-10.1) Neutrophils (%) (Auto) 64.7 % (45.0-75.0) Lymphocytes (%) (Auto) 20.4 % (20.0-45.0) Monocytes (%) (Auto) 11.8 % (1.0-10.0) H Eosinophils (%) (Auto) 1.5 % (0.0-3.0) Basophils (%) (Auto) 1.5 % (0.0-2.0) Coagulation Test 06/09/19 16:00 Prothrombin Time 9.7 SEC (9.30-11.50) Prothromb Time International Ratio 0.9 (0.9-1.1) Activated Partial Thromboplast Time 28 SEC (23-33) Chemistry Test 06/09/19 16:00 Sodium Level 135 MMOL/L (136-145) L Potassium Level 3.7 MMOL/L (3.5-5.1) Chloride Level 103 MMOL/L (98-107) Carbon Dioxide Level 28 MMOL/L (21-32) Anion Gap 4 mmol/L (5-15) L Blood Urea Nitrogen 5 mg/dL (7-18) L Creatinine 0.7 MG/DL (0.55-1.30) Estimat Glomerular Filtration Rate > 60 mL/min (>60) Glucose Level 77 MG/DL (74-106) Calcium Level 8.7 MG/DL (8.5-10.1) Total Bilirubin 0.6 MG/DL (0.2-1.0) Aspartate Amino Transf (AST/SGOT) 21 U/L (15-37) Alanine Aminotransferase (ALT/SGPT) 19 U/L (12-78) Alkaline Phosphatase 60 U/L (46-116) Total Protein 7.6 G/DL (6.4-8.2) Albumin 3.8 G/DL (3.4-5.0) Globulin 3.8 g/dL Albumin/Globulin Ratio 1.0 (1.0-2.7) Human Chorionic Gonadotropin, Quant 7399 mIU/mL (1-6) H Studies Pre-op Studies: EKG - SR Risk Assessment & Plan Assessment: otherwise healthy Plan: General Status Change Before Surgery: No Pre-Antibiotics Drug: See ER notes Given Within 1 Hr of Incision: Yes Purvi Castaneda CRNA Jun 09, 2019 21:33
--- NOTE | 2019-06-09 21:34 | Immediate Post-Op Evaluation ---
Immediate Post-Op Evalulation Immediate Post-Op Evalulation Procedure: laparotmy Date of Evaluation: Jun 09, 2019 Time of Evaluation: 21:33 IV Fluids: 1000 Blood Products: 0 Estimated Blood Loss: 200 Urinary Output: 100 Blood Pressure Systolic: 131 Blood Pressure Diastolic: 75 Pulse Rate: 71 Respiratory Rate: 14 O2 Sat by Pulse Oximetry: 100 Temperature (Fahrenheit): 97.7 Nausea: No Vomiting: No Complications none Patient Status: awake, reacts, patent Hydration Status: adequate Drug: see ER notes Purvi Castaneda CRNA Jun 09, 2019 21:34
[2019-06-09] MEDS ORDERED: HYDROmorphone 1mg/ml Carpuject IVP PRN (21:45)
[2019-06-09] MEDS ORDERED: DiphenhydrAMINE 50mg/ml Inj ONE (22:08)
[2019-06-09] MEDS ORDERED: DiphenhydrAMINE 50mg/ml Inj IVP ONE (22:15)
[2019-06-09] MEDS: LR 1000ml 1,000 ML IV SCH (23:00)
--- NOTE | 2019-06-09 23:30 | History and Physical Report ---
DATE OF ADMISSION: 06/09/2019 HISTORY OF PRESENT ILLNESS: This is a 28-year-old female, who is 2, para 0-0-1-0, who presents to [facility] with complaints of severe left lower quadrant pain. The patient had been seen prior week at the emergency room for vaginal spotting where the patient was discharged with questionable early versus threatened . However, the patient presented today with severe abdominal pain. Upon evaluation, the patient admits to some slight bleeding with no heavy clots. PAST MEDICAL HISTORY: Noncontributory. PAST SURGICAL HISTORY: Dilation and curettage for termination of . ALLERGIES: The patient has no known drug allergies. OBSTETRICAL HISTORY: Contributory for termination of . GYNECOLOGICAL HISTORY: Contributory for history of chlamydia infection. SOCIAL HISTORY: Contributory for history of smoking. PHYSICAL EXAMINATION: VITAL SIGNS: On presentation, vital signs are noted to be stable. CARDIOVASCULAR: Regular rate and rhythm. LUNGS: Clear to auscultation. ABDOMEN: Soft with severe left lower quadrant tenderness noted with palpation with rebound as well. PELVIC: Minimal blood in the vagina with cervical motion tenderness with left adnexal tenderness. LABORATORY AND DIAGNOSTIC DATA: Ultrasound revealed no evidence of intrauterine with free fluid in the cul-de-sac with left adnexal mass. I had a discussion with the radiologist and we suspected ectopic . The patient's quantitative beta-HCG was above 30,000. ASSESSMENT: History of acute abdomen, history of left lower quadrant pain, possibility of ruptured ectopic. The patient was spoken to at length about the condition and recommendation of exploratory laparotomy, salpingectomy, possible oophorectomy. The risks and benefits of the procedure including but not limited to, bleeding, infection, anesthesia, as well as adjacent organ injuries (bowel, bladder vessel). Ureteral injuries were discussed. Risk of blood transfusion was discussed. Risk of wound dehiscence, wound infection, and wound hematoma were discussed. The patient the possibility if there is no evidence of ectopic, that the patient's abdomen will be closed. The patient is fully aware, understands, and agrees. Costa Avalos M.D. DR: KORY JOB#: [id number] CC:
--- NOTE | 2019-06-10 00:27 | 48 Hour Post Anesthesia Eval ---
Post Anesthesia Evaluation Procedure: laparatomy Date of Evaluation: Jun 10, 2019 Time of Evaluation: 00:27 Blood Pressure Systolic: 135 0: 50 Pulse Rate: 70 Respiratory Rate: 14 O2 Sat by Pulse Oximetry: 98 Airway: patent Nausea: No Vomiting: No Hydration Status: adequate Cardiopulmonary Status: stable Mental Status/LOC: patient returned to baseline Post-Anesthesia Complications: none Follow-up care needed: N/A Purvi Castaneda CRNA Jun 10, 2019 00:27
--- NOTE | 2019-06-10 03:15 | Operative Note - Dictated ---
DATE OF OPERATION: 06/09/2019 PREOPERATIVE DIAGNOSES: Acute abdomen, suspected ectopic , history of chlamydia infection. POSTOPERATIVE DIAGNOSES: Acute abdomen, history of chlamydia infection, ruptured left ectopic , left adnexal adhesions, right adnexal mass. PROCEDURES: Exploratory laparotomy, left salpingectomy, lysis of adhesions, right adnexal cyst removal. SURGEON: Costa Avalos M.D. DIRECTOR OF ARCHIVES: Misael Bailey M.D. ANESTHESIOLOGIST: Mike Barahona.R.N.Dipesh ANESTHESIA: General. ESTIMATED BLOOD LOSS: Estimated blood loss during the procedure is less than 25 mL, evidence of 200 mL of hemoperitoneum. FINDINGS: Consist of left ectopic with the fallopian tubes noted to have hydrosalpinx with adhesions to the left ovary, there was a right adnexal cyst noted, the right fallopian tube and ovary were within normal limits. DESCRIPTION OF OPERATION: The patient was taken to the operating room with general anesthesia . She was then prepped and draped in sterile fashion, and placed in supine position. Haskins catheter was done at this time. A Pfannenstiel skin incision was made with a scalpel, carried down to the underlying fascia using Bovie cauterization. The fascia was nicked in the midline using Bovie cauterization. The underlying rectus muscles rectus fascia superiorly using sharp dissection and the rectus muscle was in the midline . Upon entry into the abdomen, hemoperitoneum was noted. Approximately 200 mL was evacuated. At this time, the left adnexa was noted to have ectopic , which was adherent to the left ovary. Using meticulous dissection and Bovie cauterization as well as Metzenbaum scissors, the adhesion was dissected. Once it was achieved, the ectopic was undermined with clamps x2, and ectopic was excised, and using #1 Vicryl followed by suture, excellent hemostasis was noted. Attention was then turned to the right adnexa, which was noted to have adnexal which was undermined with and cauterized and the cyst was removed. Again excellent hemostasis was noted. At this time, the abdominal cavity was copiously irrigated. Excellent hemostasis was noted. 2-0 Vicryl suture in a running fashion. Subfascia was noted to be hemostatic. Fascia was closed with #1 Vicryl suture in a running fashion. Subcutaneous was copiously irrigated. Pinpoint cauterization was hemostasis. jennifer with pressure dressing applied. The patient tolerated the procedure well. Sponge, lap, and needle counts were correct x3. The patient sent to the recovery room in stable condition. Costa Avalos M.D. DR: GAVIOTA/KARLO JOB#: [id number] CC:
[2019-06-10 04:25] VITALS: BP 110/73
[2019-06-10] MEDS: ceFAZolin sod 2 GM in D5W 110 ML IV SCH ×2 (05:04→13:17)
[2019-06-10 06:01] LABS: BASOPHILS % (AUTO) 2.2 % (0.0-2.0); EOSINOPHILS % (AUTO) 0.1 % (0.0-3.0); HEMATOCRIT 30.1 % (37.0-47.0); HEMOGLOBIN 10.3 G/DL (12.0-16.0); LYMPHOCYTES % (AUTO) 11.9 % (20.0-45.0); MEAN CORPUSCULAR VOLUME 98 FL (80-99); MONOCYTES % (AUTO) 5.2 % (1.0-10.0); NEUTROPHILS % (AUTO) 80.5 % (45.0-75.0); PLATELET COUNT 188 K/UL (150-450); RED BLOOD COUNT 3.07 M/UL (4.20-5.40); RED CELL DISTRIBUTION WIDTH 11.6 % (11.6-14.8); WHITE BLOOD COUNT 9.4 K/UL (4.8-10.8)
[2019-06-10 06:25] LABS: ANION GAP 5 mmol/L (5-15); BLOOD UREA NITROGEN 3 mg/dL (7-18); CALCIUM 7.3 MG/DL (8.5-10.1); CARBON DIOXIDE 27 MMOL/L (21-32); CHLORIDE 103 MMOL/L (98-107); CREATININE 0.7 MG/DL (0.55-1.30); POTASSIUM 3.6 MMOL/L (3.5-5.1); SODIUM 135 MMOL/L (136-145)
[2019-06-10 08:00] VITALS: BP 126/78
[2019-06-10] MEDS: LR 1000ml 1,000 ML IV SCH ×2 (08:42→17:07)
[2019-06-10 12:00] VITALS: BP 121/79
[2019-06-10] MEDS ORDERED: Tylenol #3 tab (300mg/30mg) ORAL PRN (12:00)
[2019-06-10] MEDS ORDERED: Simethicone 80mg tab ORAL PRN (12:00)
[2019-06-10] MEDS: Docusate 100mg cap ORAL SCH ×2 (13:17→17:07)
[2019-06-10 16:00] VITALS: BP 123/75
[2019-06-10] MEDS ORDERED: Ascorbic Acid 500mg tab ORAL SCH (18:00)
[2019-06-10 20:00] VITALS: BP 109/71
[2019-06-10] MEDS ORDERED: ACETAMINOPHEN-1 EAC1 ORAL (20:42)
[2019-06-10] MEDS ORDERED: ANAPROX PO (20:45)
[2019-06-10] MEDS ORDERED: Tubing IV Secondary IV ONE (21:35)
[2019-06-10] MEDS ORDERED: LR 1000ml ONE (21:35)
--- NOTE | 2019-06-11 05:45 | Progress Note ---
DATE: 06/10/2019 SUBJECTIVE: The patient without any complaints. OBJECTIVE: VITAL SIGNS: Afebrile and stable. HEENT: Normocephalic and atraumatic. ABDOMEN: Soft, nontender, and nondistended. Incision clean, dry, and intact. EXTREMITIES: No cyanosis. No clubbing. PELVIC: Lochia mild. BACK: No CVA tenderness. ASSESSMENT AND PLAN: Status post laparotomy, left salpingectomy for ectopic . Postoperative day #1. 1. The patient is doing well. 2. She is tolerating her diet. 3. She is ambulating. 4. The patient is about being discharged from the hospital . She has to attend an examination tomorrow recommendation to . However, the patient hospital. Given the fact that she is tolerating her diet and she is ambulating, I discussed with the patient regarding the above. The patient may . Misael Bailey M.D. DR: DEMETRIO JOB#: [id number] CC:
--- NOTE | 2019-06-11 08:12 | Discharge Summary ---
Discharge Summary Discharge Summary _ DATE OF ADMISSION: 06/09/2019 DATE OF DISCHARGE: 06/10/2019 DISCHARGED BY: Dr. Avalos REASON FOR ADMISSION: 28 years old female, 2, presented to [facility] with a complaint of severe left lower quadrant pain, 10 out of 10 for the last 3 days. Patient was seen initially at [facility] about 9 days ago for vaginal spotting and pelvic pain. At that time she was diagnosed with possible spontaneous . No IUP was demonstrated on ultrasound. Patient did not follow-up with [facility] as outpatient as she was advised. In the past 3 days she reported vaginal spotting with few clots. In the morning prior to visit to ED patient started to have severe abdominal pain and came for evaluation Clinical examination revealed severe left lower quadrant tenderness with palpation and rebound. No chest pain or shortness of breath. No syncope, no headache , no dizziness. Obstetric ultrasound revealed no evidence of intrauterine with free fluid in the cul-de-sac with a left adnexal mass. Ectopic was suspected. Beta hCG was 799. Patient subsequently admitted for further management. Laboratory work-up revealed no leukocytosis , stable hemoglobin and hematocrit. [facility] specialist seen and evaluated patient. Patient's condition was discussed at length by surgeon with recommendations of exploratory laparotomy , salpingectomy possible oophorectomy. The risk and benefits of the procedure were thoroughly discussed. Patient subsequently consented to surgery. Patient undergone on exploratory laparotomy, left salpingectomy, lysis of adhesion, right adnexal cyst removal. Patient tolerated procedure well. HOSPITAL COURSE: After surgery, patient admitted to medical surgical floor. No leukocytosis . Patient incision remained clean and dry. Patient was able to tolerate a diet. Pain was controlled,. Patient remained hemodynamically stable. Patient was ambulatory, oided without difficulties. Labs stable. Patient was cleared for discharge . Due to rapid and unexpected improvement in patient condition, patient was discharged in 1 day FINAL DIAGNOSES: Acute abdomen Ruptured left ectopic Left adnexal adhesions Right adnexal mass History of chlamydia infection Status post exploratory laparotomy, left salpingectomy, lysis of adhesion, right adnexal cyst removal 06/09 DISCHARGE MEDICATIONS: See Medication Reconciliation list. DISCHARGE INSTRUCTIONS: Patient was discharged home . Follow up with [facility] provider in one week. I have been assigned to dictate discharge summary for this account. I was not involved in the patient's management. Julianna Hernandez NP Jun 11, 2019 08:12
--- NOTE | 2019-06-11 14:00 | Cardiology Report ---
APPROVED REPORT EKG Measurement Heart [id number] ID [id number] Normal sinus rhythm with sinus arrhythmia Possible Left atrial enlargement Rightward axis Borderline ECG
== END 2019-06-10 21:36 | disposition home or self-care (01) | DRG 545 ==
LOC: EMR 15:00 → 2E 17:39 → EDBEDREQ 21:08 → 3E 22:30
PROC: 0UT60ZZ Resection of Left Fallopian Tube, Open Approach (ICD-10-PCS; 2019-06-09)
PROC: 0UB00ZZ Excision of Right Ovary, Open Approach (ICD-10-PCS; 2019-06-09)
PROC: 10T20ZZ Resection of Products of Conception, Ectopic, Open Approach (ICD-10-PCS; principal; 2019-06-09 20:00)
DX: O00.102 Left tubal pregnancy without intrauterine pregnancy (principal); K66.1 Hemoperitoneum; O08.0 Genital tract and pelvic infection following ectopic and molar pregnancy; Z86.19 Personal history of other infectious and parasitic diseases; N83.201 Unspecified ovarian cyst, right side
CPT/HCPCS: 36415; 76801; 76830; 80048; 80053; 81001; 84702; 85025; 85610; 85730; 86850; 86900; 86901; 87086; 87181; 93005; 94003; 94150; 96361; 96365; 96375; 99291; J2250; J2405; J2710; J2765; J7030